=== PATIENT | female | born 1945 | race Caucasian/White ===

== ENCOUNTER 2018-01-12 13:35 | Emergency (ER) | payer OTHER, MEDICARE ==
[2018-01-12 13:44] VITALS: TEMP 97.7; BMI 18.3
--- NOTE | 2018-01-12 13:55 | PDOC ---
History of Present Illness - General Chief Complaint: Syncope/Near Syncope Stated Complaint: WEAKNESS Time Seen by Provider: 01/12/18 13:53 - History of Present Illness Initial Comments: 73yo F with history of CA last year s/p stents presenting after episode of syncope prior to arrival. Patient denies loss of consciousness and recalls events leading up to syncope. She was feeling lightheaded and faint which she attributes to the hot weather and not eating anything all day. Patient feel on concrete and hit her head. Denies chest pain, SOB, abdominal pain, headache, or recent illness. Denies prior history of seizures. 01/12/18 15:28 Past History - Past Medical History Allergies/Adverse Reactions: Allergies Allergy/AdvReac Type Severity Reaction Status Date / Time No Known Allergies Allergy Verified 03/21/13 22:34 Home Medications: Ambulatory Orders RX: Metoprolol Tartrate [Lopressor -] 12.5 mg PO BID 06/28/12 RX: [place]-3 Acid Ethyl Esters [Lovaza -] 1 grams PO HS 06/28/12 RX: Rosuvastatin [Crestor -] 40 mg PO HS 06/28/12 RX: Telmisartan [Micardis] 20 mg PO DAILY 06/28/12 Amoxicillin/Potassium Clav [Augmentin 875-125 Tablet] 1 each PO BID #0 tablet RX: Aspirin Coated [Ecotrin -] 81 mg PO DAILY #0 04/17/16 RX: Clopidogrel Bisulfate [Plavix -] 75 mg PO DAILY #0 04/17/16 Wheat Dextrin [Benefiber] 1 each PO BID #0 powd.pack 04/17/16 Anemia: No Asthma: No Cancer: No Cardiac Disorders: Yes (2 STENTS) CVA: No COPD: No CHF: No Dementia: No Diabetes: No GI Disorders: Yes ([place]) Disorders: No HTN: Yes Hypercholesterolemia: No Liver Disease: No Seizures: No Thyroid Disease: No - Surgical History Abdominal Surgery: No Appendectomy: No Cardiac Surgery: Yes (2 STENTS) Cholecystectomy: Yes Lung Surgery: No Neurologic Surgery: No Orthopedic Surgery: Yes ([place] [facility]) - Suicide/Smoking/Psychosocial Hx Smoking Status: Yes Smoking History: Never smoked Have you smoked in the past 12 months: No Number of Cigarettes Smoked Daily: 0 If you are a former smoker, when did you quit?: 1973 Information on smoking cessation initiated: No Hx Alcohol Use: Yes (WINE 1-2X/WK) Drug/Substance Use Hx: No Substance Use Type: None Hx Substance Use Treatment: No *Physical Exam - Vital Signs Last Vital Signs Temp Pulse Resp BP Pulse Ox 97.7 F 52 L 18 111/42 100 01/12/18 13:42 01/12/18 13:42 01/12/18 13:42 01/12/18 13:42 01/12/18 13:42 ED Treatment Course - LABORATORY CBC & Chemistry Diagram: 01/12/18 15:15 01/12/18 15:15 Medical Decision Making - Medical Decision Making Working up patient for near syncope,cardiac vs. neurologic cause vs. vasovagal. Patient amenable to plan. Vital Signs Temp Pulse Resp BP Pulse Ox 97.7 F 52 L 18 111/42 100 01/12/18 13:42 01/12/18 13:42 01/12/18 13:42 01/12/18 13:42 01/12/18 13:42 ACS/dysrhythmia: Patient has cardiac history. Ordered EKG and troponin. ICH: Patient with no headache and an intact neurological exam. Head CT ordered. Sepsis: Patient has no infectious symptoms and is afebrile. Hypovolemia/anemia: Patient normotensive, not tachycardic. Will check CBC Vasavagal: Patients history consistent with vasovagal cause 01/12/18 15:02 Laboratory Tests 01/12/18 01/12/18 01/12/18 15:15 15:15 15:15 WBC 8.7 RBC 4.69 Hgb 15.0 Hct 44.6 MCV 95.1 MCH 32.1 MCHC 33.7 RDW 12.8 Plt Count 211 MPV 8.2 Absolute Neuts (auto) 7.1 Neutrophils % 82.4 Lymphocytes % 12.1 Monocytes % 5.0 Eosinophils % 0.2 Basophils % 0.3 Nucleated RBC % 0 Sodium Cancelled Potassium Cancelled Chloride Cancelled Carbon Dioxide Cancelled Anion Gap Cancelled BUN Cancelled Creatinine Cancelled Creat Clearance w eGFR Cancelled Random Glucose Cancelled Calcium Cancelled Total Bilirubin Cancelled AST Cancelled ALT Cancelled Alkaline Phosphatase Cancelled Creatine Kinase Cancelled Troponin I Cancelled B-Natriuretic Peptide Cancelled Total Protein Cancelled Albumin Cancelled Patient wants to go home. Workup not incomplete: still waiting on CMP, Tpn, and head CT. Explained the risks of leaving AMA including dysrhythmia, brain bleed, and . Patient and friend, Jamie, voiced understanding and signed AMA paperwork. 01/12/18 17:06 *DC/Admit/Observation/Transfer Diagnosis at time of Disposition: Syncope, near - Discharge Dispostion Disposition: AGAINST MEDICAL ADVICE Condition at time of disposition: Stable - Referrals - Patient Instructions Printed Discharge Instructions: DI for Syncope in Adults (Fainting) - Post Discharge Activity
[2018-01-12] MEDS ORDERED: SODIUM CHLORIDE 1,000 ML IV STA (15:27)
[2018-01-12 15:42] LABS: BASO % 0.3 % (0-2.0); EOS % 0.2 % (0-4.5); HEMATOCRIT 44.6 % (32.4-45.2); LYMPH % 12.1 % (8-40); MCH 32.1 pg (25.7-33.7); MCHC 33.7 g/dl (32.0-36.0); MEAN CELL VOLUME 95.1 fl (80-96); MEAN PLT VOLUME 8.2 fl (7.5-11.1); NEUT % 82.4 % (42.8-82.8); PLATELET COUNT 211 K/MM3 (134-434); RBC 4.69 M/mm3 (3.60-5.2); RDW 12.8 % (11.6-15.6); WHITE BLOOD COUNT 8.7 K/mm3 (4.0-10.0)
[2018-01-12 16:41] VITALS: BP 107/64; PULSE 62
--- NOTE | 2018-01-12 16:52 | PDOC ---
Attending Attestation - Resident Resident Name: Radha Renteria - ED Attending Attestation I have performed the following: I have examined & evaluated the patient, The case was reviewed & discussed with the resident, I agree w/resident's findings & plan, Exceptions are as noted - HPI HPI: 01/12/18 16:45 73-year-old female patient with history of coronary disease status post stent presents with near syncope. The patient reports to me that she's been outside in the hot sun all day has not eaten or drank much food or fluids. States that she has been feeling sluggish and felt lightheaded and lost her balance. She denies loss of conscious. Fell and hit her head. No loss of consciousness, headache, nausea or vomiting. No neurological deficits. Patient I chest pain short of breath and reports feeling well. Does not take any anticoagulants. Came into the ER for further management. - Physicial Exam PE: 01/12/18 16:52 GENERAL: Awake, alert, and fully oriented, in no acute distress. EYES: EOMI, sclera anicteric, conjunctiva clear ENT: Auricles normal inspection, hearing grossly normal, nares patent NECK: Normal ROM, supple LUNGS: Breath sounds equal, clear to auscultation bilaterally. No wheezes, and no crackles HEART: Regular rate and rhythm, normal S1 and S2, no murmurs, rubs or gallops EXTREMITIES: Normal range of motion, no edema. No clubbing or cyanosis. No cords, erythema, or tenderness NEUROLOGICAL: Cranial nerves II through XII grossly intact. Normal speech, normal gait SKIN: Warm, Dry, normal turgor, no rashes or lesions noted. - Medical Decision Making 01/12/18 16:53 Vital Signs Temp Pulse Resp BP Pulse Ox 97.7 F 62 18 107/64 99 01/12/18 13:42 01/12/18 16:40 01/12/18 16:40 01/12/18 16:40 01/12/18 16:40 The the patient I suspect likely had vasovagal near syncope. The patient would benefit from a head CT given that her age. The EKG is normal and without any acute findings. I discussed the case with patient's white mixing operator Dr. Mendoza and if the workup was negative, the patient is clear for discharge with outpatient follow-up. The patient however does not want to stay for evaluation. She reports no symptoms and despite lengthy discussion. The patient would like to go home given that she feels well. EKG is unremarkable. However, we did not obtain a head CT. Given the risks, the patient will sign out AMA. Pt has AAOx3 Heart Score/ECG Review #1 01/12/18 16:56 NSR 52 no std/jun, normal axis, normal intervals, QTC 399
--- NOTE | 2018-01-12 17:28 | CON.CARD ---
Consult Consult Specialty:: Cardiology Referred by:: Jaleel Berry MD Reason for Consultation:: Near syncope - History of Present Illness Chief Complaint: Near syncope History of Present Illness: 73 yo CAD s/p IWMI s/p multivessel HONEY RCA 07/06/2011, HONEY LAD 08/28/2011, neg MPI for ischemia 01/14/2017, diastolic dysfunction, HTN/HCVD, hyperlipidemia, mild carotid stenosis, GERD, osteoporosis, dementia last saw Dr. Manzano in office 12/11/2017, presented with near syncope preceded by lethargy, light- headedness, denies true syncope, admits to decreased intake, denies chets pain, dyspnea, orthopnea, palpitations, orthopnea, PND or LE edema. - Alcohol/Substance Use Hx Alcohol Use: Yes (WINE 1-2X/WK) - Smoking History Smoking history: Never smoked Have you smoked in the past 12 months: No Aproximately how many cigarettes per day: 0 If you are a former smoker, when did you quit?: 1973 Home Medications - Allergies Allergies/Adverse Reactions: Allergies Allergy/AdvReac Type Severity Reaction Status Date / Time No Known Allergies Allergy Verified 03/21/13 22:34 - Home Medications Home Medications: Ambulatory Orders Metoprolol Tartrate [Lopressor -] 12.5 mg PO BID 06/28/12 [place]-3 Acid Ethyl Esters [Lovaza -] 1 grams PO HS 06/28/12 Rosuvastatin [Crestor -] 40 mg PO HS 06/28/12 Telmisartan [Micardis] 20 mg PO DAILY 06/28/12 Amoxicillin/Potassium Clav [Augmentin 875-125 Tablet] 1 each PO BID #0 tablet Aspirin Coated [Ecotrin -] 81 mg PO DAILY #0 04/17/16 Clopidogrel Bisulfate [Plavix -] 75 mg PO DAILY #0 04/17/16 Wheat Dextrin [Benefiber] 1 each PO BID #0 powd.pack 04/17/16 Review of Systems - Review of Systems Constitutional: reports: Lethargy Neurological: reports: Dizziness Vital Signs: Vital Signs Temperature 97.7 F 01/12/18 13:42 Pulse Rate 62 01/12/18 16:40 Respiratory Rate 18 01/12/18 16:40 Blood Pressure 107/64 01/12/18 16:40 O2 Sat by Pulse Oximetry (%) 99 01/12/18 16:40 Heart Sounds: Yes: S1, S2 - Other Data Labs, Other Data: CBC, BMP 01/12/18 15:15 01/12/18 15:15 Troponin, BNP 01/12/18 01/12/18 15:15 15:15 Troponin I Cancelled B-Natriuretic Peptide Cancelled Troponin, BNP 01/12/18 01/12/18 15:15 15:15 Troponin I Cancelled B-Natriuretic Peptide Cancelled SB @ [address]-T changes
--- NOTE | 2018-01-13 12:06 | EKG ---
Test Reason : Blood Pressure : / mmHG Vent. Rate : 052 BPM Atrial Rate : 052 BPM P-R Int : 144 ms QRS Dur : 066 ms QT Int : 430 ms P-R-T Axes : 072 064 071 degrees QTc Int : 399 ms SINUS BRADYCARDIA OTHERWISE NORMAL ECG Confirmed by MD TIRSO, LAWSON ([id number]) on 01/13/2018 12:05:20 PM Referred By: Confirmed By:LAWSON CHAHAL MD
== END 2018-01-12 17:40 | disposition left against medical advice (07) ==
LOC: JER 13:35
PROC: 3E0337Z Introduction of Electrolytic and Water Balance Substance into Peripheral Vein, Percutaneous Approach (ICD-10-PCS; principal; 2018-01-12)
DX: I25.2 Old myocardial infarction (principal); I25.10 Atherosclerotic heart disease of native coronary artery without angina pectoris; I10 Essential (primary) hypertension; Z95.5 Presence of coronary angioplasty implant and graft
CPT/HCPCS: 36415; 85025; 93005; 93010; 96360; 99284-25; J7030